=== PATIENT | male | born 1990 | race Caucasian/White ===

== ENCOUNTER → 2016-10-05 | Day surgery (SDC) | payer BC ==
[~2016-10-05] VITALS: Ht 188 cm; Wt 83.9 kg
[~2016-10-05] MED LIST: LR 1000ml 1,000 ML IVLG SCH; LR 1000ml ONE; Meperidine 25mg/ml Inj IV PRN; Midazolam 2mg/2ml Inj ONE; NKM; Propofol 10mg/ml 20ml IV ONE; fentaNYL 100 mcg/2 mL IV ONE
[2016-10-05 09:12] VITALS: BP 125/76
--- NOTE | 2016-10-05 09:37 | Short Stay Surgery H&P ---
History of Present Illness History of Present Illness HPI Naman Howell is a 26 year old male who was admitted on for Melena Patient History Allergies: Coded Allergies: No Known Allergies (Unverified , 10/04/16) PAST MEDICAL HISTORY: Past Surgeries: Social History: Medication History Scheduled No Known Medications* (NKM - No Known Medications*), 0 ., (Reported) Medication History Narrative see typed H&P Physical Exam Vital Signs Last Vital Signs Date Time Temp Pulse Resp B/P Pulse Ox O2 Delivery O2 Flow Rate FiO2 10/05/16 09:12 97.2 69 18 125/76 97 Room Air Plan Attestation Are the patient's medical conditions optimized for surgery? BAUTISTA MCMAHON Oct 05, 2016 09:37
--- NOTE | 2016-10-05 09:38 | Pre-Procedure Note/Attestation ---
Pre-Procedure Note/Attestation Complete Prior to Procedure Planned Procedure: not applicable Procedure Narrative: EGD/Colon Indications for Procedure Pre-Operative Diagnosis: Hematochezia Attestation I attest that I discussed the nature of the procedure; its benefits; risks and complications; and alternatives (and the risks and benefits of such alternatives ), prior to the procedure, with the patient (or the patient's legal new accounts representative). I attest that, if there was a reasonable possibility of needing a blood transfusion, the patient (or the patient's legal new accounts representative) was given the [facility] standardized written summary, pursuant to the [place] Blood Safety Act ([place] Health and Safety Code # 1645, as amended). I attest that I re-evaluated the patient just prior to the surgery and that there has been no change in the patient's H&P, except as documented below: BAUTISTA MCMAHON Oct 05, 2016 09:38
--- NOTE | 2016-10-05 09:55 | Anethesia Preoperative Eval ---
Anesthesia Pre-op PMH/ROS General Date of Evaluation: Oct 05, 2016 Time of Evaluation: 09:38 Anesthesiologist: Demario ASA Score: ASA 2 Mallampati Score Class I : Soft palate, uvula, fauces, pillars visible Class II: Soft palate, uvula, fauces visible Class III: Soft palate, base of uvula visible Class IV: Only hard plate visible Mallampati Classification: Class II Surgeon: Denilson Diagnosis: Abdomial pain Surgical Procedure: EGD Colonoscopy Anesthesia History: none Family History: no anesthesia problems Allergies: Coded Allergies: No Known Allergies (Unverified , 10/04/16) Medications: see eMAR Past Medical History Cardiovascular: Denies: CAD, HTN, [place], arrhythmia, other, valve dz Pulmonary: Denies: COPD, AHSAN, asthma, other Gastrointestinal/Genitourinary: Reports: GERD, Denies: CRI, ESRD, other Neurologic/Psychiatric: Denies: CVA, TIA, dementia, depression/anxiety, other Endocrine: Denies: DM, hypothyroidism, other, steroids HEENT: Denies: [place] (L), [place] (R), cataract (L), cataract (R), glaucoma, other Hematology/Immune: Denies: DVT, anemia, bleeding disorder, other Musculoskeletal/Integumentary: Denies: DDD, DJD, OA, RA, edema, other PMH Narrative: as above PSxH Narrative: T&A Appendectomy Anesthesia Pre-op Phys. Exam Physician Exam Last Vital Signs Date Time Temp Pulse Resp B/P Pulse Ox O2 Delivery O2 Flow Rate FiO2 10/05/16 09:12 97.2 69 18 125/76 97 Room Air Constitutional: NAD Neurologic: CN 2-12 intact Cardiovascular: RRR, no M/R/G Respiratory: CTA Gastrointestinal: S/NT/ND Airway Exam Mallampati Score: Class II MO: full Neck: flexible ROM: full Teeth: intact Dentures: no lower, no upper Anesthesia Pre-op A/P Risk Assessment & Plan Assessment: ASA 2 Plan: MAC Status Change Before Surgery: No Pre-Antibiotics Drug: None MAX VARGAS M.D. Oct 05, 2016 09:55
[2016-10-05 10:24] VITALS: BP 120/81
--- NOTE | 2016-10-05 10:28 | Immediate Post-Op Evaluation ---
Immediate Post-Op Evalulation Immediate Post-Op Evalulation Procedure: EGD Colonoscopy Date of Evaluation: Oct 05, 2016 Time of Evaluation: 10:27 IV Fluids: 600 Blood Products: none Estimated Blood Loss: none Urinary Output: none Blood Pressure Systolic: 125 Blood Pressure Diastolic: 74 Pulse Rate: 81 Respiratory Rate: 20 O2 Sat by Pulse Oximetry: 99 Temperature (Fahrenheit): 97.4 Pain Score (1-10): 1 Nausea: No Vomiting: No Complications none Patient Status: reacts, patent, none Hydration Status: adequate MAX VARGAS M.D. Oct 05, 2016 10:28
--- NOTE | 2016-10-05 10:28 | Endoscopy Procedure Note ---
Endoscopy Procedure Note Indication for Procedure: hematochezia Procedures Performed: EGD, colonoscopy Operative Findings/Diagnosis: inlet patch, patchy TI erythema Specimen: yes Pt Tolerated Procedure Well: Yes Estimated Blood Loss: none Anesthesiologist: see report Anesthesia: MAC Medication Given: see anesthesia record Implant(s) used?: No 50 yrs or older w/o bx or poly: Not Applicable 10yrs. F/U not recommended: Not Applicable If not recommended, why?: BAUTISTA MCMAHON Oct 05, 2016 10:28
[2016-10-05 10:29] VITALS: BP 125/76
--- NOTE | 2016-10-05 10:29 | Brief Operative Note ---
Immediate Post Operative Note Operative Note Chief Complaint: hematochezia Pre-op Diagnosis: Hematochezia Procedure: E b x. C bx Post-op Diagnosis: inlet patch, erik TI erythema BAUTISTA MCMAHON Oct 05, 2016 10:29
[2016-10-05 10:33] VITALS: BP 126/81
--- NOTE | 2016-10-05 11:20 | 48 Hour Post Anesthesia Eval ---
Post Anesthesia Evaluation Procedure: EGD Colonoscopy Date of Evaluation: Oct 05, 2016 Time of Evaluation: 11:19 Blood Pressure Systolic: 124 0: 58 Pulse Rate: 76 Respiratory Rate: 22 Temperature (Fahrenheit): 97.5 O2 Sat by Pulse Oximetry: 99 Airway: patent Nausea: No Vomiting: No Pain Intensity: 1 Hydration Status: adequate Cardiopulmonary Status: stable Mental Status/LOC: patient returned to baseline Follow-up Care/Observations: n/a Post-Anesthesia Complications: none Follow-up care needed: ready to discharge MAX VARGAS M.D. Oct 05, 2016 11:20
[2016-10-05 11:30] VITALS: BP 123/67
[2016-10-05 12:00] VITALS: BP 128/80
--- NOTE | 2016-10-11 23:07 | Operative Note - Dictated ---
GASTROENTEROLOGY PROCEDURE REPORT DATE OF PROCEDURE: 10/05/2016 PROCEDURE: Upper gastroendoscopy with biopsy as well as colonoscopy with biopsy. SURGEON: Za Martinez M.D. ANESTHESIA: Please see the separate anesthesiologist's notes for details. PRE-ENDOSCOPIC DIAGNOSIS: Hematochezia. POST-ENDOSCOPIC DIAGNOSES: 1. Incidental esophageal inlet patch. 2. Status post random biopsy of the duodenum and the antrum. 3. Status post random biopsy of right and left colon. 4. Small patch of erythema in the terminal ileum status post biopsy. DESCRIPTION OF PROCEDURE: The procedure, its risks, indications, alternatives, and possible complications were explained and informed consent was obtained. The patient was then sedated in the left lateral decubitus position. A diagnostic upper endoscope was introduced through oropharynx and advanced to the duodenum. The endoscope was then gradually withdrawn and the mucosa was examined carefully. Examination of the upper gastric mucosa revealed incidental esophageal inlet patch. Biopsies of the duodenum and the antrum were sent to pathology for review. After rectal exam was done, the colonoscope was introduced in the rectum and advanced to the terminal ileum. There was small patch of erythema in the terminal ileum, which was biopsied. The colon itself was normal and right random biopsy of the right and left side were sent to pathology for review. Retroflexion of the rectum was unremarkable except for mild internal hemorrhoids. The colonoscope was removed. The patient was sent to recovery in good condition. COMPLICATIONS: None. RECOMMENDATIONS: 1. Follow up biopsy results. 2. Outpatient followup. Za Martinez M.D. DR: KENA JOB#: [id number] CC: [place]
== END | disposition home or self-care (01) ==
LOC: GAS 08:53 → EDBD 10:00
DX: K92.1 Melena (principal); R10.9 Unspecified abdominal pain; K21.9 Gastro-esophageal reflux disease without esophagitis; K64.8 Other hemorrhoids; Z90.49 Acquired absence of other specified parts of digestive tract
CPT/HCPCS: 43239; 45380; J2250; J2704; J3010; J7120; 94003; 94150